=== PATIENT | male | born 1970 | race Caucasian/White ===

== ENCOUNTER 2024-12-28 15:18 | Emergency (ER) | payer BC, SELFPAY ==
--- NOTE | 2024-12-28 15:20 | ED_ITS ---
HPI - Abdominal Pain General Chief Complaint: Abdominal Pain Stated Complaint: L abdominal pain Time Seen by Provider: 12/28/24 15:20 Source: patient Mode of arrival: ambulatory Limitations: no limitations History of Present Illness HPI narrative: Piotr is a 54-year-old male patient presenting to the clinic today with complaints of left-sided abdominal pain x1 day. He reports symptoms started yesterday. Is having pain to the left upper quadrant. No associated nausea, vomiting, diarrhea, or constipation. Last bowel movement was today and normal. No blood in his stool. Denies any fevers, chills, body aches. Thinks he may have pulled a muscle. Pain is under the left ribs-no pain with respiration. Denies any chest pain. Currently rates the pain a 5/10. Pain is sharp-seems to be always there but comes in waves at times. Has taken ibuprofen this morning without relief. Denies any injury. He denies any urinary symptoms Related Data Home Medications ?Medication ?Instructions ?Recorded ?Confirmed ?Last Taken ?Type No Home Medications 12/28/24 Unknown H istory Allergies Allergy/AdvReac Type Severity Reaction Status Date / Time No Known Allergies Allergy Verified 12/28/24 15:35 Review of Systems Review of Systems: Pertinent positives per HPI. Patient denies any fever, chills, rash, headache, visual changes, dizziness, cough, runny nose, sore throat, shortness of breath, chest pain, palpitations, nausea, vomiting, diarrhea, constipation, or any urinary issues. PMFSH Comments At the time of my signature, I reviewed and agree with the nursing past medical, surgical, social, and family history. There is no relevant family history pertinent to the patient complaint. Exam Narrative: General: Well-developed, well nourished, in no apparent distress. Head: Normocephalic, atraumatic. Cardio: Regular rate and rhythm, s1 and s2 normal, no murmur appreciated. Resp: Clear to auscultation bilaterally, no rhonchi, rales, wheezing or rubs. Abdomen: Soft, pliable, bowel sounds present in all quadrants, left upper quadrant tender to palpation, no organomegly, no CVAT tenderness. Course Course Emergency Course: Portions of this record may have been created with voice recognition software. Level of Care: Express Care Visit Vital Signs Vital signs: Vital Signs Temperature 36.8 C 12/28/24 15:30 Pulse Rate 74 12/28/24 15:30 Respiratory Rate 20 12/28/24 15:30 Blood Pressure 148/85 H 12/28/24 15:30 Pulse Oximetry 98 12/28/24 15:30 Oxygen Delivery Room Air 12/28/24 15:30 Temperature 36.8 C 12/28/24 15:30 Pulse Rate 74 12/28/24 15:30 Respiratory Rate 20 12/28/24 15:30 Blood Pressure 148/85 H 12/28/24 15:30 Pulse Oximetry 98 12/28/24 15:30 Oxygen Delivery Room Air 12/28/24 15:30 Vital signs reviewed MDM - Abdominal Pain MDM Narrative Medical decision making narrative: At the time of visit patient is resting comfortably on the exam table. Patient appears to be nontoxic. Complaints of left-sided abdominal pain x1 day. He reports symptoms started yesterday. Is having pain to the left upper quadrant. No associated nausea, vomiting, diarrhea, or constipation. Last bowel movement was today and normal. No blood in his stool. Denies any fevers, chills, body aches. Thinks he may have pulled a muscle. Pain is under the left ribs-no pain with respiration. Denies any chest pain. Currently rates the pain a 5/10. Pain is sharp-seems to be always there but comes in waves at times. Has taken i buprofen this morning without relief. Denies any injury. On exam patient has left upper quadrant abdominal pain under anterior ribs. Explained to the patient that we can only do x-ray imaging and urinalysis in the clinic today and I feel that he may need further evaluation. Patient does not wish to go to the emergency room for further evaluation. Plan: Patient is having left upper quadrant abdominal pain with unknown etiology. Shared decision making: Option 1- Offer to send patient to the emergency room for further evaluation of left upper quadrant abdominal pain and patient declined at this time. Option 2- Recommend contacting his PCP and they may be able to order him outpatient CT and labs. If his symptoms worsen- encouraged to go to the emergency room. Supportive measures were discussed with the patient and they voiced understanding discharge instructions and agrees to treatment plan. Return precautions reviewed Differential Diagnosis Differential diagnosis: Likely abdominal pain, acute appendicitis, constipation, diverticulitis, gastroenteritis, pancreatitis, small bowel obstruction and other (Splenic infarction) Discharge Plan Discharge Clinical Impression: Abdominal pain, LUQ Patient Disposition: Home Condition: Stable Instructions: Antibiotic Form, Abdominal Pain (ED) Additional Instructions: Offer to send you to the ER for further evaluation and you declined at this time. Increase fluids and stay well hydrated May take Tylenol/Motrin as needed for pain per bottle directions Go to the emergency room if your left upper quadrant abdominal pain worsens Contact her PCP tomorrow as discussed-may be able to get labs and CT scan order if you do not wish to go to the ER Patient Language: Mongolian Prescriptions: No Action No Home Medications Follow-up/Referrals: Breezy,Brandon Milian MD [Primary Care Provider, Unknown] Time of Disposition: 15:49 Quality NIHSS Nursing Documentation ED NIHSS nursing documentation: reviewed/agree
[2024-12-28 15:30] VITALS: BP 148/85; PULSE 74; RESP 20; TEMP 36.8; O2SAT 98
--- OUTSIDE RECORDS SUMMARY | 2024-12-28 15:43 | XMS_ITS | Encounter Summary ---
Author Organization [facility] Healthcare Address [address] [place] [id number] Care Team Providers Care Sueding Machine Tender Name Role Phone Brandon Tijerina MD Primary Care Provider [phone] Deandre Massey MD Unavailable [phone] Encounter Details Date Type Department Care Team (Late Contact Info) Description 11/11/2024 Results Follow-Up [facility] Medical Group [facility] [address] [place] [id number] Brandon Tijerina MD [address] [facility] [address] [place] [address] Comprehensive metabolic panel, Lipid panel, PSA screen, Additional followed-up results: 6 Social History Tobacco Use Types Packs/Day Years Used Date Smoking Tobacco: Never Alcohol Use Standard Drinks/Week Comments Yes 0 (1 standard drink = 0.6 oz pur e alcohol) AUDIT-C Answer Date Recorded Q1: How often do you have a drink containing alc ohol? 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 [address] [place] [address] Abeba Hurst MD [address] [place] [address] 02/07/2025 2:00 PM CDT - 02/07/2025 2:30 PM CDT Surgery [address] [address] Abeba Hurst MD [address] [place] [address] COLONOSCOPY Scheduled Procedures Name Priority Associated Diagnoses Date/Ti me COLONOSCOPY Encounter for screening colonoscopy 02/07/2025 2:00 PM CDT documented as of this encounter Visit Diagnoses Not on filedocumented in this encounter Care Teams Sueding Machine Tender Relationship Specialty Start Date End Date Brandon Tijerina MD [address] [place] [address] PCP - General Infectious Diseases 10/19/19 Deandre Massey MD [address] PAKO Roldan [facility] [address] [place] [address] Surgeon Orthopedic Surgery 11/09/20 documented as of this encounter
--- OUTSIDE RECORDS SUMMARY | 2024-12-28 15:43 | XMS_ITS | Encounter Summary ---
Author Organization [facility] Address [address] [place] [address] Phone Care Team Providers Care Sawmill Manager Name Role Phone Brandon Tijerina MD Primary Care Provider [phone] Deandre Massey MD Unavailable [phone] Encounter Details Date Type Department Care Team (Late st Contact Info) Description 02/23/2020 Orders Only [facility] [address] [place] [address] Scanning, Provider Social History Tobacco Use Types Packs/Day Years Used Date Smoking Tobacco: Never Alcohol Use Standard Drinks/Week Comments Yes 0 (1 standard drink = 0.6 oz pur e alcohol) PHQ-2 Answer Date Recorded PHQ-2 Total Score (If total score is 3 or more points, staff should administer the PHQ-9) 0 10/19/2019 Sex and Gender Information Value Date Recorded Sex Assigned at Not on file 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 Gender Identity Not on file Sexual Orientation Not on file documented as of this encounter Plan of Treatment Upcoming Encounters Date Type Department Care Team (Late st Contact Info) Description 02/07/2025 2:00 PM CDT Hospital Encounter [address] [address] Abeba Hurst MD [address] [place] [address] [place] [address] 02/07/2025 2:00 PM CDT - 02/07/2025 2:30 PM CDT Surgery [address] [address] Abeba Hurst MD [address] [facility] [address] [place] [address] COLONOSCOPY Scheduled Procedures Name Priority Associated Diagnoses Date/Ti me COLONOSCOPY Encounter for screening colonoscopy 02/07/2025 2:00 PM CDT documented as of this encounter Procedures Procedure Name Priority Date/Time Associated Diagnosis Comments SCAN - LABS 02/23/2020 documented in this encounter Results * SCAN - LABS (02/23/2020) us Provider Scanning Final Result documented in this encounter Visit Diagnoses Not on filedocumented in this encounter Care Teams Sawmill Manager Relationship Specialty Start Date End Date Brandon Tijerina MD [address] [place] [address] PCP - General Infectious Diseases 10/19/19 Deandre Massey MD [address] [facility] [address] PAKO Roldan [facility] [address] [place] [address] Surgeon Orthopedic Surgery 11/09/20 documented as of this encounter
--- OUTSIDE RECORDS SUMMARY | 2024-12-28 15:43 | XMS_ITS | Encounter Summary ---
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 Gender Identity Not on file Sexual Orientation Not on file documented as of this encounter Plan of Treatment Upcoming Encounters Date Type Department Care Team (Late st Contact Info) Description 02/07/2025 2:00 PM CDT Hospital Encounter [address] [address] Abeba Hurst MD [address] [place] [address] [place] [address] 02/07/2025 2:00 PM CDT - 02/07/2025 2:30 PM CDT Surgery [address] [address] Abeba Hurst MD [address] [place] [address] [address] [place] [address] COLONOSCOPY Scheduled Procedures Name Priority Associated Diagnoses Date/Ti me COLONOSCOPY Encounter for screening colonoscopy 02/07/2025 2:00 PM CDT documented as of this encounter Procedures Procedure Name Priority Date/Time Associated Diagnosis Comments GI - RESULT 10/19/2019 documented in this encounter Results * GI - RESULT (10/19/2019) Anatomical Region Laterality Modality Other us Provider Scanning Final Result documented in this encounter Visit Diagnoses Not on filedocumented in this encounter Care Teams Shoe Repairer Apprentice Relationship Specialty Start Date End Date Brandon Tijerina MD [address] [place] [address] PCP - General Infectious Diseases 10/19/19 Deandre Massey MD [address] [facility] [address] [facility] [address] PAKO Roldan [facility] [address] [place] [address] Surgeon Orthopedic Surgery 11/09/20 documented as of this encounter
--- OUTSIDE RECORDS SUMMARY | 2024-12-28 15:43 | XMS_ITS | Clinical Summary ---
[facility] [place] [address] Address [address] [place] [address] Phone Care Team Providers Care Landscape Architecture Teacher Name Role Phone Brandon Tijerina MD Primary Care Provider [phone] Deandre Massey MD Unavailable [phone] Allergies No known active allergies Medications cyanocobalamin (Vitamin B-12) 1,000 mcg tabletIndication s:Prevention of Vitamin B12 Deficiency Take 1 tablet (1,000 mcg total) by mouth daily 11/11/2024 Active tirzepatide, weight loss, (Zepbound) 7.5 mg/0.5 mL pen injectorIndicati ons:Weight Loss Management for Obese Patient (BMI >= 30) Inject 0.5 mL (7.5 mg total) under the skin every 7 days 2 mL 1 11/15/2024 Active Active Problems Problem Noted Date Diagnosed Date Colon cancer screening 11/11/2024 Encounter for screening colonoscopy 11/11/2024 Low serum vitamin B12 11/11/2024 Overview (11/11/2024): Lab Results Component Value Date VITB12 354 11/11/2024 Other fatigue 11/10/2023 Assessment & Plan (07/03/2024 1:24 PM MANAGER LAB): New symptom, present for at least six months, likely multifactorial. He denies symptoms of sleep apnea such as unrestful sleep, daytime sleepiness. He does have a Mallampati class IV exam but does not want a sleep study. We ordered labs to evaluate for various possible medical causes of fatigue. Return early as needed. Mixed hyperlipidemia 10/20/2019 Assessment & Plan (07/01/2024 3:59 PM MANAGER LAB): Chronic, present for 4-5 or more years, lab update needed and ordered today. Assessment & Plan (01/20/2023 11:50 AM CDT): He is due for a check on his fasting lipids. He denies chest pain or pressure. Assessment & Plan (11/09/2020 3:34 PM CDT): He has some relatively minor cholesterol abnormalities. Overall 10 year cardiovascular risk is low at about 3%. We recommended attention to his diet and hopefully some weight loss. Actinic keratosis 10/10/2018 Overview (10/19/2019): Left side of face, sideburn area. Assessment & Plan (11/26/2020 3:39 PM CDT): We sent him to Dr. Melo for a suspected actinic keratosis of the left side of his face, but she was not concerned and did not treat this area. Exam shows no rough skin at this time. There is a small brown papule just posterior to the orbit. We will monitor this clinically. He has a 1 cm solar lentigo on the right hand dorsum, unchanged over the past year. No other significant abnormalities. Assessment & Plan (10/19/2019 11:09 AM CDT): He has some probable sun damaged skin on the left side of his face in the sideburn area, ill-defined. It is probably solar or actinic keratosis. He also has a solar lentigo on the right hand dorsum. We will refer to Dr. Meol for a good skin check since he is out in the sun a lot. Chronic right shoulder pain 11/09/2014 Assessment & Plan (11/09/2020 3:35 PM CDT): He has had problems with his shoulders. He had left shoulder surgery a few years ago to repair a rotator cuff. The right shoulder gives him some discomfort is well with certain movements, especially rotational type movements. It seems to localize to the acromioclavicular joint. Exam does not show any effusion or warmth. There is minimal local tenderness. He does not want a referral at this time, but if he gets worse he will call to set something up with his surgeon, Dr. Massey. Arthralgia 10/10/2014 Overview (10/19/2019): Probably degenerative, mostly right shoulder and both knees. He is status post left shoulder surgery with a good outcome. Assessment & Plan (02/02/2023 4:41 PM CDT): He had surgery on his left shoulder about 7 years ago. His right shoulder bothers him a bit but he can do what he needs to do. Other joints occasionally bother him, especially the knees. He does not take anything for it. We will monitor clinically. Assessment & Plan (10/26/2019 12:55 PM CDT): He gets aches and pains in his right shoulder and both knees. He has had it for years. 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 He also raises cattle. He takes occasional ibuprofen. Most likely has some degenerative arthritis due to obesity and repetitive use. If things get worse, we will consider appropriate evaluation and referral. History of kidney stones 10/27/2012 Overview (01/19/2023): CT KUB: mild R hydronephrosis, 2.5 mm calculus distal R ureter, tiny L renal calculi, small amt free fluid ant pelvis. Class 1 obesity due to exces s calories without serious comorbidity with body mass index (BMI) of 33.0 to 33.9 in adult 10/11/1999 Overview (11/15/2024): BMI fluctuates. Assessment & Plan (07/03/2024 1:24 PM MANAGER LAB): Chronic, present for decades, uncontrolled, recommend a trial of GLP-1 agonist therapy, risks of medication discussed. Follow-up early as needed. Assessment & Plan (02/02/2023 4:42 PM CDT): We encouraged attention to his diet and some weight loss. Assessment & Plan (11/09/2020 3:33 PM CDT): His weight is up a few lb. I recommended attention to his diet, and hopefully some significant weight loss. We ordered labs to monitor for metabolic effects of obesity. He says he will get them sometime between now and his next annual. Assessment & Plan (10/19/2019 11:10 AM CDT): He is moderately obese. He apparently has always been somewhat heavy, and does not feel that he could get his weight down much at least in the near future. We discussed the relation of obesity to various medical conditions including DJD, diabetes, and heart disease. We will check some labs for metabolic effects of obesity. We gave him some tips on calorie restriction and types of food to eat. Follow-up annually, or sooner if needed. Resolved Problems Problem Noted Date Diagnosed Date Resolved Date Cough 02/28/2020 11/09/2020 Overview (02/28/2020): Likely due to COVID-19. COVID-19 02/23/2020 11/09/2020 Overview (11/09/2020): Cold symptoms, not much else. Encounters Date Type Department Care Team Description 11/15/2024 Telephone [facility] [address] [place] [address] Brandon Tijerina MD 11/11/2024 11:10 AM CDT Lab [address] Need for hepatitis B screening test; Annual visit for general adult medical examination with abnormal findings; Mixed hyperlipidemia; Prostate cancer screening; Other fatigue; Vitamin B12 deficiency 11/11/2024 7:30 AM CDT Office Visit [facility] Gastroenterology at [address] [place] [address] Jonn Lima NP Colon cancer screening (Primary Dx); Chronic fatigue 11/11/2024 Results Follow-Up [facility] [address] [place] [address] Brandon Tijerina MD Comprehensive metabolic panel, Lipid panel, PSA screen, Additional followed-up results: 6 11/11/2024 Telephone [facility] [address] [place] [address] Brandon Tijerina MD 11/11/2024 Telephone [facility] at [address] [place] [address] Kevin Schmidt MA from Last 3 Months Immunizations Immunization Administration Dates Next Due Tdap 05/30/2013 Surgical History Surgery Date Site/Laterality Comments SHOULDER ARTHROSCOPY 06/08/[address] Massey. DNA STOOL 10/19/2019 Not submitted as of 12/23/2019. Medical History Medical History Date Comments Non morbid obesity 10/11/1999 Covid-19 02/23/2020 Cold symptoms, n ot much else. Cough 02/28/2020 Likely due to CO VID-19. Chicken pox Shingles 1999 Dr. Trimble Obesity (BMI 30-39.9) 10/11/1999 Family History Medical History Relation Name Comments Hypertension Father Other Father Pituitary tumor Hypertension Mother Relation Name Status Comments Brother Alive Father Alive Mother Alive Sister Alive Social History Tobacco Use Types Packs/Day Years Used Date Smoking Tobacco: Never Tobacco Cessation:Counseling Given: Not Answered Alcohol Use Standard Drinks/Week Comments Yes 0 [...] on file Legal Sex Male 11:49 PM MANAGER LAB Gender Identity Not on file Sexual Orientation Not on file Obstetrics History Last Filed Vital Signs Vital Sign Reading Time Taken Comments Blood Pressure 144/88 11/11/2024 7:22 AM CDT Pulse 62 11/11/2024 7:22 AM CDT Temperature 36.8 C (98.2 F) 07/01/2024 3:02 PM MANAGER LAB Respiratory Rate 16 07/01/2024 3:02 PM MANAGER LAB Oxygen Saturation 98% 11/11/2024 7:22 AM CDT Inhaled Oxygen Concentration - - Weight 107.9 kg (237 lb 14.4 oz) 11/11/2024 7:22 AM CDT Height 180.3 cm (5' 11) 11/11/2024 7:22 AM CDT Body Mass Index 33.18 11/11/2024 7:22 AM CDT Plan of Treatment Upcoming Encounters Date Type Department Care Team (Late st Contact Info) Description 02/07/2025 2:00 PM CDT Hospital Encounter [address] [address] Abeba Hurst MD [address] [place] [address] DR GTZ [address] [place] [phone] 02/07/2025 2:00 PM CDT - 02/07/2025 2:30 PM CDT Surgery [address] [address] Abeba Hurst MD [address] [place] [address] DR GTZ [address] [place] [phone] COLONOSCOPY Scheduled Procedures Name Priority Associated Diagnoses Date/Ti me COLONOSCOPY Encounter for screening colonoscopy 02/07/2025 2:00 PM CDT Health Maintenance Due Date Last Done Comments Colon Cancer Screening-Colonoscopy 1970 Hepatitis C Screening 1970 Zoster Vaccine (1 of 2) 02/01/2020 DTaP/Tdap/Td Vaccine (2 - Td or Tdap) 05/30/2023 05/30/2013 Covid-19 Vaccine ( season) 2024 05/07/2021, 04/10/2021 Influenza Vaccine (#1) 2025 Depression Screening 07/01/2025 07/01/2024, 01/20/2023, 11/09/2020, Additional history exists Regular Well Visit/Exam 18-64 07/01/2025 07/01/2024, 01/20/2023, 11/09/2020, Additional history exists Prostate Cancer Screening-PSA 11/11/2026 11/11/2024 Hepatitis B Screening Completed 11/11/2024 Pneumococcal vaccine <65 Aged Out No longer eligible based on patient's age to complete this topic Procedures Procedure Name Priority Date/Time Associated Diagnosis Comments EGFR Routine 11/11/2024 11:12 AM CDT Annual visit for general adult medical examination with abnormal findings Mixed hyperlipidemia DIFFERENTIAL AUTO Routine 11/11/2024 11: 12 AM CDT Annual visit for general adult medical examination with abnormal findings Mixed hyperlipidemia THYROID FUNCTION CASCADE Routine 11/11/2024 11:12 AM CDT Mixed hyperlipidemia Other fatigue CBC WITH AUTO DIFFERENTIAL Routine 11/11/2024 11:12 AM CDT Annual visit for general adult medical examination with abnormal findings Mixed hyperlipidemia VITAMIN B12 Routine 11/11/2024 11:12 AM CDT Vitamin B12 deficiency TSH Routine 11/11/2024 11:12 AM CDT Annual visit for general adult medical examination with abnormal findings Other fatigue PSA SCREEN Routine 11/11/2024 11:12 AM CDT Annual visit for general adult medical examination with abnormal findings Prostate cancer screening LIPID PANEL Routine 11/11/2024 11:12 AM CDT Annual visit for general adult medical examination with abnormal findings Mixed hyperlipidemia COMPREHENSIVE METABOLIC PANEL Routine 11/11/2024 11:12 AM CDT Annual visit for general adult medical examination with abnormal findings Mixed hyperlipidemia HEPATITIS B SURFACE ANTIBODY (IMMUNE STATUS) Routine 11/11/2024 11:12 AM CDT Need for hepatitis B screening test HEPATITIS B SURFACE ANTIGEN Routine 11/11/2024 11:12 AM CDT Need for hepatitis B screening test HEPATITIS B CORE ANTIBODY, TOTAL Routine 11/11/2024 11:12 AM CDT Need for hepatitis B screening test from Last 3 Months Results * eGFR (11/11/2024 11:12 AM CDT) eGFR 84 >=60 mL/min/1. 73 m2 Comment: Interpretive Data Reference Interval Normal >/= 90 mL/min/1.73m2 Mildly decreased* 60 - 89 mL/min/1.73m2 Mildly to moderately decreased 45 - 59 mL/min/1.73m2 Moderately to severely decreased 30 - 44 mL/min/1.73m2 Severely decreased 15 - 29 mL/min/1.73m2 Kidney Failure < 15 mL/min/1.73m2 *Relative to young adult level Estimated glomerular filtration rate is determined by the 2020 CKD-EPI equation recommended by the National Kidney Foundation (A Unifying Approach to GFR Estimation: Recommendations of the NKF-ASK Task Force on Reassessing the Inclusion of Race in Diagnosing Kidney Disease, JASN 2020). The CKD-EPI equation should not be used for patients with unstable renal function and has not been validated in children and those over 70. Current interpretive data was last reviewed 2021. Blood 11/11/2024 11:1 2 AM CDT 11/11/2024 1:45 PM CDT us Brandon Tijerina MD LAB BLOOD ORDERABLES Final Re sult [facility] [place] [facility] [place] [address] * Differential, auto (11/11/2024 11:12 AM CDT) Neutrophil abs 2.52 1.50 - 6.50 K/cumm Imm gran abs 0.01 0.00 - 0.10 K/cumm [facility] ([place]) Lymphocyte abs 1.70 0.80 - 3.30 K/cumm [facility]) Monocyte abs 0.40 0.20 - 0.80 K/cumm [facility] ([place]) Eosinophil abs 0.09 0.00 - 0.50 K/cumm [facility] ([place]) Basophil abs 0.06 0.00 - 0.10 K/cumm [facility] ([place]) Neutrophil pct 52.6 % [facility] ([place]) Comment: Interpretive Data Percent cell count reference ranges are not reported, since discordance with absolute values may lead to misinterpretation of CBC data. Current Interpretive Data was last revised on 2017. Imm gran pct 0.2 % [facility] ([place]) Comment: Interpretive Data Percent cell count reference ranges are not reported, since discordance with absolute values may lead to misinterpretation of CBC data. Current Interpretive Data was last revised on 2017. Lymphocyte pct 35.6 % [facility] ([place]) Comment: Interpretive Data Percent cell count reference ranges are not reported, since discordance with absolute values may lead to misinterpretation of CBC data. Current Interpretive Data was last revised on 2017. Monocyte pct 8.4 % [facility] ([place]) Comment: Interpretive Data Percent cell count reference ranges are not reported, since discordance with absolute values may lead to misinterpretation of CBC data. Current Interpretive Data was last revised on 2017. Eosinophil pct 1.9 % [facility] ([place]) Comment: Interpretive Data Percent cell count reference ranges are not reported, since discordance with absolute values may lead to misinterpretation of CBC data. Current Interpretive Data was last revised on 2017. Basophil pct 1.3 % [facility] ([place]) Comment: Interpretive Data Percent cell count reference ranges are not reported, since discordance with absolute values may lead to misinterpretation of CBC data. Current Interpretive Data was last revised on 2017. Blood 11/11/2024 11:1 2 AM CDT 11/11/2024 1:45 PM CDT us Brandon Tijerina MD LAB BLOOD ORDERABLES Final Re sult Performing Organization Address City/[facility]/ZIP Co de Phone Number [facility] ([place]) 1 [facility] [place] [address] * Thyroid Function [place] (11/11/2024 11:12 AM CDT) TSH 1.71 0.30 - 4.20 mcIUnit/mL Blood 11/11/2024 11:1 2 AM CDT 11/11/2024 1:45 PM CDT us Brandon Tijerina MD LAB BLOOD ORDERABLES Final Re sult Performing Organization Address [facility] de Phone Number [facility] ([place]) 1 [facility] [place] [address] * PSA screen (11/11/2024 11:12 AM CDT) PSA-Total 0.36 <=3.90 ng/mL Comment: Interpretive Data AGE SEX REFERENCE INTERVAL 0 minutes-150 years Female None 0 minutes-49 years Male None 50-59 years Male 0-3.90 60-69 years Male 0-5.40 70-79 years Male 0-6.20 80-150 years Male 0-6.20 The Melisa PSA Total assay procedure was used. Results from different manufacturers or methods may not be comparable. Serial testing should be performed using the same method. Current interpretive data last revised 21. Blood 11/11/2024 11:1 2 AM CDT 11/11/2024 1:45 PM CDT us Brandon Tijerina MD LAB BLOOD ORDERABLES Final Re sult Performing Organization Address [facility] Co de Phone Number [facility] ([place]) 1 [facility] [place] [address] * CBC with auto differential (11/11/2024 11:12 AM CDT) WBC 4.78 3.80 - 9.90 K/cumm Hgb 14.8 13.0 - 17.5 g/dL [facility] Hct 44.8 38.9 - 50.3 % [facility]) Plt 248 150 - 400 K/cumm [facility] ([place]) MPV 9.3 9.1 - 12.3 fL [facility] ([place]) RBC 4.70 4.30 - 5.80 M/cumm [facility] ([place]) MCV 95.3 81.3 - 96.4 fL [facility] ([place]) MCH 31.5 27.1 - 33.3 pg [facility] ([place]) MCHC 33.0 32.3 - 35.7 g/dL [facility] ([place]) RDW CV 13.3 11.1 - 14.9 % [facility] ([place]) RDW SD 47.8 35.7 - 48.1 fL [facility] NRBC abs 0.00 0.00 - 0.01 K/cumm [facility] Blood 11/11/2024 11:1 2 AM CDT 11/11/2024 1:45 PM CDT Brandon Tijerina MD LAB BLOOD ORDERABLES Final Re sult Performing Organization Address City/[facility] Co de Phone Number [facility] ([place]) 1 [facility] Department of [place] [id number] * Hepatitis B core antibody, total Blood (11/11/2024 11:12 AM CDT) Pathologist [facility] Hep B core IgG/IgM Nonreactive Nonreactive Comment:Testing performed by : [facility], [address] [facility], [place]., [address] Blood 11/11/2024 11:1 2 AM CDT 11/11/2024 4:45 PM CDT Brandon Tijerina MD LAB MICROBIOLOGY - GENERAL OR DERABLES Final Result [facility] ([place]) 1 [facility] [place] [address] * Hepatitis B surface antibody (immune status) Blood (11/11/2024 11:12 AM CDT) HBsAb (immune status) Nonreactive Comment: Interpretive Data Nonreactive: This result is consistent with a lack of immunity to Hepatitis B Virus when used in the setting of routine screening. Equivocal: The immune status of the individual should be further assessed, if appropriate, after consideration of clinical status, risk factors, and additional diagnostic information. Reactive: This result is consistent with immunity to Hepatitis B Virus when used in the setting of routine screening. Current interpretive data was last revised on 19. Testing performed by: [address] [address] Blood 11/11/2024 11:1 2 AM CDT 11/11/2024 5:17 PM CDT Brandon Tijerina MD LAB MICROBIOLOGY - GENERAL OR DERABLES Final Result Performing Organization Address [facility] Co de Phone Number [facility] ([place]) 1 [place] [address] * Hepatitis B Surface Antigen Blood (11/11/2024 11:12 AM CDT) Pathologist [facility] HepBsAg Nonreactive Nonreactive Comment:Testing performed by : [facility], [address] [place] [address]., [id number] Blood 11/11/2024 11:1 2 AM CDT 11/11/2024 5:17 PM CDT Brandon Tijerina MD LAB MICROBIOLOGY - GENERAL OR DERABLES Final Result [facility] ([place]) 1 [facility] [place] [address] * TSH (11/11/2024 11:12 AM CDT) Thyroid Stimulating Hormone 1.71 0.30 - 4.20 mcIUnit/mL Blood 11/11/2024 11:1 2 AM CDT 11/11/2024 1:45 PM CDT Brandon Tijerina MD LAB BLOOD ORDERABLES Final Re sult Performing Organization Address City/[facility]/ZIP Co de Phone Number [facility] ([place]) 1 [facility] [place] [address] * Vitamin B12 (11/11/2024 11:12 AM CDT) Vitamin B12 354 230 - 1,250 pg/mL Blood 11/11/2024 11:1 2 AM CDT 11/11/2024 1:45 PM CDT Brandon Tijerina MD LAB BLOOD ORDERABLES Final Re sult Performing Organization Address [facility] de Phone Number [facility] ([place]) [address] [facility] [place] [address] * (ABNORMAL) Lipid panel (11/11/2024 11:12 AM CDT) Pathologist [facility] Cholesterol 203(H) 30 - 199 mg/dL Comment: Interpretive Data Ages < or = 19 years Acceptable: <170 mg/dL Borderline high: 170-199 mg/dL High: >or= 200 mg/dL Ages > or = 20 years Desirable: <200 mg/dL Borderline high: 200-239 mg/dL High: >or= 240 mg/dL Literature References: 1. Expert Panel on Integrated Guidelines for Cardiovascular Health and Risk Reduction in Children and Adolescents. Pediatrics 2011;128:S213 2. NCEP Expert Panel. Circulation 2004;110:227 Current Interpretive Data was last revised on 2017. Triglycerides 80 <=149 mg/dL [facility] ([place]) Comment: Interpretive Data Ages < or = 9 years Acceptable: <75 mg/dL Borderline high: 75-99 mg/dL High: >or= 100 mg/dL Ages 10 to 20 years Acceptable: <90 mg/dL Borderline high: 90-129 mg/dL High: >or= 130 mg/dL Ages > or = 20 years Desirable: <150 mg/dL Borderline high: 150-199 mg/dL High: 200-499 mg/dL Very high: >or= 499 mg/dL Literature References: 1. Expert Panel on Integrated Guidelines for Cardiovascular Health and Risk Reduction in Children and Adolescents. Pediatrics 2011;128:S213 2. NCEP Expert Panel. Circulation 2004;110:227 Current Interpretive Data was last revised on 2017. HDL 71 >=40 mg/dL [facility] ([place]) Comment: Interpretive Data Ages < or = 19 years Acceptable: >45 mg/dL Borderline low: 40-45 mg/dL Low: <40 mg/dL Ages > or = 20 years Desirable: >or= 60 mg/dL Low: <40 mg/dL Literature References: 1. Expert Panel on Integrated Guidelines for Cardiovascular Health and Risk Reduction in Children and Adolescents. Pediatrics 2011;128:S213 2. NCEP Expert Panel. Circulation 2004;110:227 Current Interpretive Data was last revised on 2017. LDL, calculated 118 <=129 mg/dL [facility] ([place]) Comment: Interpretive Data Ages < or = 19 years Acceptable: <110 mg/dL Borderline high: 110-129 mg/dL High: >or= 130 mg/dL Ages > or = 20 years Optimal: <100 mg/dL Near optimal: 100-129 mg/dL Borderline high: 130-159 mg/dL High: >160 mg/dL Calculated using the Antony LDL-C estimating equation. This equation was implemented on 2023. Prior to this date LDL-C was estimated using the Friedewald equation. Literature References: 1. Expert Panel on Integrated Guidelines for Cardiovascular Health and Risk Reduction in Children and Adolescents. Pediatrics 2011;128:S213 2. NCEP Expert Panel. Circulation 2004;110:227 3. Antony Bob al. NILE Cardiol. 2020 September 09;5(5):540-548. doi: 10.1001/jamacardio.2020.0013 Current Interpretive Data was last revised on 2023. Non-HDL Cholesterol 132 mg/dL [facility] ([place]) Comment: Interpretive Data Ages < or = 19 years Acceptable: <120 mg/dL Borderline high: 120-144 mg/dL High: >145 mg/dL Ages > or = 20 years When triglycerides are >200 mg/dL, Non-HDL cholesterol is a secondary target of therapy with treatment goals that are 30 mg/dL greater than the LDL cholesterol target. Literature References: 1. Expert Panel on Integrated Guidelines for Cardiovascular Health and Risk Reduction in Children and Adolescents. Pediatrics 2011;128:S213 2. NCEP Expert Panel. Circulation 2004;110:227 Current Interpretive Data was last revised on 2017. Chol/HDL ratio 3 [facility] ([place]) Blood 11/11/2024 11:1 2 AM CDT 11/11/2024 1:45 PM CDT us Brandon Tijerina MD LAB BLOOD ORDERABLES Final Re sult [facility] ([place]) 1 [facility] Department [place] [address] * Comprehensive metabolic panel (11/11/2024 11:12 AM CDT) Sodium 140 135 - 145 mmol/L Potassium, pl 4.3 3.3 - 4.9 mmol/L [facility]) Chloride 104 97 - 110 mmol/L [facility] CO2 24 22 - 32 mmol/L [facility]) Anion gap 12 2 - 15 mmol/L [facility]) BUN 18 6 - 25 mg/dL [facility] Creatinine 1.05 0.80 - 1.30 mg/dL [facility]) Glucose 85 70 - 199 mg/dL [facility] ([place]) Comment: Interpretive Data Fasting glucose >/= 126 mg/dl is diagnostic for diabetes. Fasting is defined as no caloric intake for at least 8 hours. Fasting glucose between 100 mg/dl to 125 mg/dl is diagnostic of prediabetes. In a patient with classic symptoms of hyperglycemia or hyperglycemic crisis, a random glucose >/= 200 mg/dl is diagnostic for diabetes. In the absence of unequivocal hyperglycemia, results should be confirmed by repeat testing. The classification and Diagnosis of Diabetes Diabetes Care 2021; 46: S19-S40. Current interpretive data was last revised 2022. Calcium 9.4 8.5 - 10.3 mg/dL [facility] Bilirubin, total 0.4 0.1 - 1.2 mg/dL [facility] Protein, pl 7.3 6.5 - 8.5 g/dL [facility] Albumin 4.5 3.5 - 5.0 g/dL [facility] Alk phos 76 40 - 130 Units/L [facility] ALT 18 7 - 55 Units/L [facility] AST 20 10 - 50 Units/L [facility] Blood 11/11/2024 11:1 2 AM CDT 11/11/2024 1:45 PM CDT us Brandon Tijerina MD LAB BLOOD ORDERABLES Final Re sult [facility] Department [place] [address] from Last 3 Months Insurance Spare Backup PA Sp[employer] PA Care Teams Landscape Architecture Teacher Relationship Specialty Start Date End Date Brandon Tijerina MD [address] [place] [address] PCP - General Infectious Diseases 10/19/19 Deandre Massey MD [address] [facility] [address] PAKO Roldan [facility] [address] [place] [address] Surgeon Orthopedic Surgery 11/09/20
== END 2024-12-28 16:01 | disposition home or self-care (01) ==
PROVIDERS: Emergency Provider Nurse Practitioner Family; PCP Internal Medicine Infectious Disease
DX: R10.12 Left upper quadrant pain (principal)
CPT/HCPCS: 99202; G0463